=== PATIENT | male | born 2005 | race Caucasian/White ===

== ENCOUNTER 2024-07-04 12:57 | Emergency (ER) | payer BC, SELFPAY ==
[2024-07-04 13:02] VITALS: BP 146/84; PULSE 75; TEMP 36.5; O2SAT 99; BMI 19.5
[2024-07-04 13:24] LABS: Basophils Percent Auto 0.4 % (0.2-2.0); Eosinophils Absolute Auto 0.1 10^3/uL (0.0-0.7); Eosinophils Percent Auto 1.1 % (0.9-7.0); Hematocrit 45.3 % (42.0-54.0); Hemoglobin 16.1 g/dL (14.0-18.0); Immature Granulocytes Abs Auto 0.01 10^3/uL (0.00-0.03); Immature Granulocytes Pct Auto 0.2 % (0.0-0.5); Lymphocytes Absolute Auto 1.5 10^3/uL (1.2-3.8); Lymphocytes Percent Auto 31.6 % (20.5-60.0); Mean Corpuscular HGB Conc 35.5 g/dL (29.9-35.2); Mean Corpuscular Hemoglobin 30.4 pg (25.9-34.0); Mean Corpuscular Volume 85.5 fL (80.0-94.0); Mean Platelet Volume 10.2 fL (9.5-13.5); Monocytes Absolute Auto 0.5 10^3/uL (0.3-0.8); Monocytes Percent Auto 11.4 % (1.7-12.0); Neutrophils Absolute Auto 2.6 10^3/uL (1.4-6.5); Neutrophils Percent Auto 55.3 % (43.0-75.0); Platelet Count 174 10^3/uL (150-450); Red Cell Distribution Width 11.1 % (11.0-15.0); White Blood Count 4.7 10^3/uL (4.0-11.0)
[2024-07-04 13:52] LABS: Alanine Aminotransferase 26 U/L (16-63); Albumin Globulin Ratio 1.3; Albumin Level 4.3 g/dL (3.4-5.0); Alkaline Phosphatase 55 U/L (46-116); Anion Gap 16.6; Aspartate Amino Transferase 25 U/L (15-37); BUN Creatinine Ratio 8.1; Bilirubin Total 1.8 mg/dL (0.2-1.0); Calcium 9.4 mg/dL (8.5-10.1); Carbon Dioxide 27.1 mmol/L (21.0-32.0); Chloride 102 mmol/L (98-107); Estimated GFR (African America >60 (>=60 mL/min/1.73m^2); Estimated GFR (Non-African Ame >60 (>=60 mL/min/1.73m^2); Globulin 3.3 g/dL; Glucose 96 mg/dL (74-106); Potassium 3.7 mmol/L (3.5-5.1); Sodium 142 mmol/L (136-145); Total Protein 7.6 g/dL (6.4-8.2)
[2024-07-04 14:17] LABS: HIV Antigen NON-REACTIVE (NONREACTIVE); Internal Control Within Normal Limits
--- NOTE | 2024-07-04 15:59 | ED_ITS ---
HPI HPI - General Adult General Chief complaint: Recheck/Abnormal Lab/Rx Stated complaint: WANTS TO BE SEEN FOR HIV Time Seen by Provider: 07/04/24 13:08 Mode of arrival: walk-in History of Present Illness HPI narrative: The patient is coming to the ER with concern for his last sexual encounter that it could have exposed him to HIV, patient mentioned that this was a new partner and he is in a male to male relationship, but when asked about details the patient mentioned that he had only oral sexual encounter with his partner The patient had no penetration or any rectal sex The patient is not sure that his sexual partner was HIV positive Related Data Previous Rx's ?Medication ?Instructions ?Recorded dolutegravir 50 mg tablet 50 mg PO DAILY #28 tabs 07/04/24 emtricitabine 200 mg-tenofovir 1 tab PO DAILY #28 tabs 07/04/24 disoproxil fumarate 300 mg tablet Allergies Allergy/AdvReac Type Severity Reaction Status Date / Time No Known Drug Allergies Allergy Verified 07/04/24 13:02 Opioid HPI Opioid Management Most Recent Opioid Data: No Data to Display Review of Systems ROS Status of ROS 10 or more systems reviewed and unremark able except as noted in history and below PFSH PFSH Social History Little interest or pleasure in doing things: not at all Feeling down, depressed, or hopeless: not at all Exam Narrative Exam Narrative: Nurses notes and vital signs reviewed and patient is not hypoxic. General: Well-appearing and in no apparent distress. Skin: Warm, dry, no pallor noted. No rash. Head: Normocephalic, atraumatic. Neck: Supple, non-tender. Eye: Pupils are equal, round and EOMI. No scleral icterus. Ears, Nose, Mouth, and Throat: TM are clear, no nasal mucosal hypertrophy. Oral mucosa is moist, no posterior oropharynx erythema, uvula is mid-line Cardiovascular: Regular Rate and Rhythm without murmur, gallop or rub. Respiratory: No accessory muscle use or respiratory distress. Lungs are clear to auscultation, no wheezing, rales or rhonchi Chest Wall: no tenderness Back: No midline thoracic or lumbar vertebral tenderness. No CVA tenderness Musculoskeletal: normal ROM, no calf or popliteal tenderness, no lower extremity edema/swelling GI: Abdomen is soft, non-distended. Normal bowel sounds. No masses appreciated. No tenderness to palpation. No rebound, guarding, or rigidity noted. Neurological: A&O x4. No cranial nerve dysfunction observed. No truncal ataxia. Moves all extremities. Sensation intact. Psychiatric: Cooperative and interactive. Normal mood and affect. Constitutional Vital Signs, click to edit/add: Last Vital Signs Temp 97.7 F 07/04/24 13:02 Pulse 75 07/04/24 13:02 Resp 18 07/04/24 13:02 BP 146/84 H 07/04/24 13:02 Pulse Ox 99 07/04/24 13:02 O2 Del Method Room Air 07/04/24 13:02 Course Vital Signs Vital signs: Vital Signs Temperature 97.7 F 07/04/24 13:02 Pulse Rate 75 07/04/24 13:02 Respiratory Rate 18 07/04/24 13:02 Blood Pressure 146/84 H 07/04/24 13:02 Pulse Oximetry 99 07/04/24 13:02 Oxygen Delivery Method Room Air 07/04/24 13:02 Temperature 97.7 F 07/04/24 13:02 Pulse Rate 75 07/04/24 13:02 Respiratory Rate 18 07/04/24 13:02 Blood Pressure 146/84 H 07/04/24 13:02 Pulse Oximetry 99 07/04/24 13:02 Oxygen Delivery Method Room Air 07/04/24 13:02 Medical Decision Making MDM Narrative Medical decision making narrative: The patient came to us requesting postexposure antiviral treatment after he had his last sexual encounter with a new partner on The patient is not sure that that sexual encounter was with HIV-positive patient The patient had a CBC and chemistry showing no acute significant pathology and he did explain that he also drinks alcohol occasionally I did explain to the patient right now that he is supposed to get HIV and syphilis test annually anyway because he is sexually active but oral sexual encounter usually are not at risk for HIV exposure and is not indicated to start postexposure medication for this but the patient started explaining that he did taste his partner semen in his mouth that day and he also bleeds a lot from his gums sometime although he does not have any open wound The patient is requesting to be treated I did explain to him that right now this is a very low risk exposure and although it is indicated in case of high viral load patient exposure to open wound in his mouth and that with the patient is concerned about his scenario right now it is less likely but I offered him the prescription and he knows the risk of this medication and side effects Patient was discharged to follow-up with his primary care doctor on Saturday Lab Data Labs: Lab Results 07/04/24 Range/Units 13:20 WBC 4.7 (4.0-11.0) 10^3/uL RBC 5.30 (4.70-6.10) 10^6/uL Hgb 16.1 (14.0-18.0) g/dL Hct 45.3 (42.0-54.0) % MCV 85.5 (80.0-94.0) fL MCH 30.4 (25.9-34.0) pg MCHC 35.5 H (29.9-35.2) g/dL RDW 11.1 (11.0-15.0) % Plt Count 174 (150-450) 10^3/uL MPV 10.2 (9.5-13.5) fL Neut % (Auto) 55.3 (43.0-75.0) % Lymph % (Auto) 31.6 (20.5-60.0) % Stanley % (Auto) 11.4 (1.7-12.0) % Eos % (Auto) 1.1 (0.9-7.0) % Baso % (Auto) 0.4 (0.2-2.0) % Neut # (Auto) 2.6 (1.4-6.5) 10^3/uL Lymph # (Auto) 1.5 (1.2-3.8) 10^3/uL Stanley # (Auto) 0.5 (0.3-0.8) 10^3/uL Eos # (Auto) 0.1 (0.0-0.7) 10^3/uL Baso # (Auto) 0.0 (0.0-0.1) 10^3/uL Abs Immat Gran (auto) 0.01 (0.00-0.03) 10^3/uL Imm/Tot Granulo (auto) 0.2 (0.0-0.5) % Sodium 142 (136-145) mmol/L Potassium 3.7 (3.5-5.1) mmol/L Chloride 102 (98-107) mmol/L Carbon Dioxide 27.1 (21.0-32.0) mmol/L Anion Gap 16.6 BUN 8.0 (6.4-19.3) mg/dL Creatinine 0.99 (0.70-1.30) mg/dL Est GFR ( Amer) >60 (>=60 mL/min/1.73m^2) Est GFR (Non-Af Amer) >60 (>=60 mL/min/1.73m^2) BUN/Creatinine Ratio 8.1 Glucose 96 (74-106) mg/dL Calcium 9.4 (8.5-10.1) mg/dL Total Bilirubin 1.8 H (0.2-1.0) mg/dL AST 25 (15-37) U/L ALT 26 (16-63) U/L Alkaline Phosphatase 55 (46-116) U/L Total Protein 7.6 (6.4-8.2) g/dL Albumin 4.3 (3.4-5.0) g/dL Globulin 3.3 g/dL Albumin/Globulin Ratio 1.3 HIV 1&2 Antibody Non-reactive (NONREACTIVE) HIV P24 Antigen Non-reactive (NONREACTIVE) Discharge Plan Discharge Chief Complaint: Recheck/Abnormal Lab/Rx Clinical Impression: Exposure to HIV Patient Disposition: Home, Self-Care Time of Disposition Decision: 14:16 Condition: Good Prescriptions / Home Meds: New dolutegravir 50 mg tablet 50 mg PO DAILY Qty: 28 0RF emtricitabine-tenofovir (TDF) 200-300 mg tablet 1 tab PO DAILY Qty: 28 0RF Print Language: Upper Sorbian Instructions: Postexposure Prophylaxis (ED) Referrals: Shane Vázquez MD [Primary Care Provider] - 1 week Discharge Date/Time: 07/04/24 14:30
== END 2024-07-04 14:30 | disposition home or self-care (01) ==
PROVIDERS: Emergency Provider Emergency Medicine; PCP Family Medicine
DX: Z20.6 Contact with and (suspected) exposure to human immunodeficiency virus [HIV] (principal)
CPT/HCPCS: 36415; 80053; 85025; 87389; 99283